=== PATIENT | female | born 1970 | race Caucasian/White ===

== ENCOUNTER 2016-12-15 17:26 | Emergency (ER) | payer SELFPAY ==
[2016-12-15 13:43] LABS: BASOPHILS 0.6 %; BASOPHILS ABSOLUTE 0.05 10/3/uL (0.0-0.16); EOSINOPHILS ABSOLUTE 0.16 10/3/uL (0.0-0.53); IMMATURE GRANULOCYTES 0.2 %; IMMATURE GRANULOCYTES ABSOLUTE 0.02 10/3/uL (0.0-0.11); LYMPHOCYTES 35.6 %; LYMPHOCYTES ABSOLUTE 2.87 10/3/uL (0.67-4.30); MEAN CORPUS HGB CONC 34.1 g/dL (32.0-36.0); MEAN CORPUSCULAR HEMOGLOB 32.3 pg (26.0-34.0); MEAN CORPUSCULAR VOLUME 94.8 fL (80-100); MEAN PLATELET VOLUME 10.9 fL (9.2-13.0); MONOCYTES 6.4 %; MONOCYTES ABSOLUTE 0.52 10/3/uL (0.21-1.20); NEUTROPHILS 55.2 %; NEUTROPHILS ABSOLUTE 4.45 10/3/uL (2.02-8.40); PLATELET COUNT 232 10/3/uL (150-400); WHITE BLOOD CELLS 8.1 10/3/uL (4.5-10.5)
[2016-12-15 13:44] LABS: HEMATOCRIT 36.7 % (36.0-48.0); HEMOGLOBIN 12.5 g/dL (12.0-16.0); MANUAL DIFF NO %; RED CELL COUNT 3.87 10/6/uL (4.0-5.6)
[2016-12-15 13:49] LABS: PARTIAL THROMBO TIME 29.2 SEC (22.5-37.2); PROTIME (NOT ORD) 13.4 SEC (12.0-14.5)
[2016-12-15 13:58] LABS: CHEST PAIN PROFILE TAT 0 Hrs 19 Mins; CHLORIDE, SERUM 112 MMOL/L (96-112); CO2 (CARBON DIOXIDE) 23 MMOL/L (24-34); POTASSIUM, SERUM 3.4 MMOL/L (3.5-5.3); SODIUM, SERUM 142 MMOL/L (135-148); TROPONIN I <0.02 NG/ML (<0.05)
[2016-12-15 14:00] LABS: BUN (BLOOD UREA NITROGEN) 13 MG/DL (6-23); CALCIUM, SERUM 9.7 MG/DL (8.5-10.4); CREATININE 2.05 MG/DL (0.55-1.02); GFR AFRICAN AMERICAN 33 ML/MIN (>=60); GFR NON AFRICAN AMERICAN 29 ML/MIN (>=60); GLUCOSE, SERUM 93 MG/DL (60-99)
[~2016-12-15 17:26] MED LIST: ADDERALL20 MG PO; ADDERXR25 PO; ADVAIR INHALER INH; ADVAIR115P INH; ADVAIR250 INH; CRESTOR20 MG PO; DIL2TAB PO; DIVIGEL0.25 MG TD; EMIRON; ESTRACE1 MG PO; ESTROGEL TD; ESTROTEST; FLONASE NAS; LEVOXYL175 MCG PO; LINZESS 290 M290 MCG PO; LOP25 PO; MACROBID PO; MELATONIN1 M1 PO; MELATONIN5 M1 PO; NORV5 PO; OXYCON10 PO; PAX10; PAX20 PO; PEP20 PO; PR25 PO; PRENATAL VITAMIN PO; PRILOSEC OTC20 MG PO; PROTONIX PO; SINGULAIR1 PO; SUCR PO; SYN.15 PO; SYNTHROID137 MCG PO; TOPAMAX25 PO; TRAZ100 PO; TRAZ50 PO; VITAMIN B-1500 MG PO; VITAMIN D31000 UNIT PO; WELLXL150 PO; ZOFRAN4 PO; [UNRECOGNIZED DRUG - OTHER]
== END 2016-12-15 20:28 | disposition home or self-care (01) ==
LOC: ER 17:26
PROVIDERS: Emergency Medicine
DX: R10.10 Upper abdominal pain, unspecified (principal); N17.9 Acute kidney failure, unspecified; Z87.442 Personal history of urinary calculi; Z90.710 Acquired absence of both cervix and uterus; Z88.1 Allergy status to other antibiotic agents; Z88.6 Allergy status to analgesic agent; Z88.5 Allergy status to narcotic agent; Z88.8 Allergy status to other drugs, medicaments and biological substances; Z79.899 Other long term (current) drug therapy
CPT/HCPCS: 71020; 74176; 80048; 83735; 84484; 85025; 85610; 85730; 93005; 96374; 96375; 99285; A9270-GY; J1170; J2405